=== PATIENT | male | born 1965 | race African-American/Black ===

== ENCOUNTER 2018-03-17 06:02 | Day surgery (SDC) | payer OTHER ==
[~2018-03-17] VITALS: Ht 180.3 cm; Wt 106.6 kg
[2018-03-17] MEDS ORDERED: KETOROLAC 30 MG/ML VIAL ONE (07:53)
[2018-03-17] MEDS ORDERED: LIDOCAINE 2% 100 MG/5 ML UJET TP ONE (07:54)
[2018-03-17] MEDS ORDERED: MIDAZOLAM 2 MG/2 ML VIAL ONE (08:06)
[2018-03-17] MEDS ORDERED: fentaNYL 0.05 MG/ML VIAL ONE (08:06)
== END 2018-03-17 08:45 | disposition home or self-care (01) ==
LOC: MDS 06:02 → MMU 06:04 → MDS 08:45
PROVIDERS: ATTEND Internal Medicine Gastroenterology
DX: Z12.11 Encounter for screening for malignant neoplasm of colon (principal); K57.30 Diverticulosis of large intestine without perforation or abscess without bleeding; J45.909 Unspecified asthma, uncomplicated
CPT/HCPCS: 45378; J1885; J2250; J3010